=== PATIENT | female | born 1990 | race Caucasian/White ===

== ENCOUNTER 2016-11-18 18:43 | Emergency (ER) | payer SELFPAY ==
--- NOTE | 2016-11-18 20:41 | ED.PDOC ---
History of Present Illness - General Chief Complaint: General Stated Complaint: she thinks she has the flu Time Seen by Provider: 11/18/16 19:11 Source: patient Exam Limitations: no limitations - History of Present Illness Initial Comments: Patient presents with three days of feeling sick. She says three days ago she was tired and had muscle aches. Yesterday she felt worse, and today she started having a fever. She just got treated for bronchitis with amoxicillin. No other complaints. Did not have a flu shot this year. Timing/Duration: 24 hours Severity: moderate Improving Factors: nothing Worsening Factors: nothing Associated Symptoms: malaise, weakness Allergies/Adverse Reactions: Allergies NO KNOWN ALLERGY Allergy (Verified 11/18/16 19:26) Home Medications: Ambulatory Orders Divalproex Sodium ER [Depakote ER] 1,000 mg PO DAILY 06/24/16 Oseltamivir Phosphate [Tamiflu] 75 mg PO BID #9 cap 11/18/16 Review of Systems - Review of Systems Constitutional: States: see HPI EENTM: States: no symptoms reported, tearing Cardiology: States: no symptoms reported Gastrointestinal/Abdominal: States: no symptoms reported Genitourinary: States: no symptoms reported Musculoskeletal: States: muscle pain Skin: States: no symptoms reported Neurological: States: no symptoms reported Endocrine: States: no symptoms reported Hematologic/Lymphatic: States: no symptoms reported Past Medical History (General) - Patient Medical History Hx Seizures: Yes - epileptic Hx Stroke: No Hx Dementia: No Hx Asthma: No Hx of COPD: No Hx Cardiac Disorders: No Hx Congestive Heart Failure: No Hx Pacemaker: No Hx Hypertension: No Hx Thyroid Disease: No Hx Diabetes: No Hx Gastroesophageal Reflux: No Hx Renal Disease: No Hx Cancer: No Hx of HIV: No Hx Hepatitis C: No Hx MRSA: No Surgical History: no surgical history - Vaccination History Hx Tetanus, Diphtheria Vaccination: No Hx Influenza Vaccination: No Hx Pneumococcal Vaccination: No Immunizations Up to Date: No - Social History Hx Tobacco Use: Yes Hx Chewing Tobacco Use: No Hx Alcohol Use: Yes Hx Substance Use: No Hx Substance Use Treatment: No Hx Depression: No Hx Physical Abuse: No Hx Emotional Abuse: No Hx Suspected Abuse: No - Female History Patient is a Female of Child Bearing Age (10 -59 yrs old): No Patient : No Family Medical History - Family History Mother Family History: Unknown Living Status: Still Living Physical Exam - Physical Exam General Appearance: Alert Ears, Nose, Throat: normal ENT inspection Neck: non-tender, full range of motion, supple Respiratory: lungs clear Cardiovascular/Chest: normal peripheral pulses, regular rate, rhythm, no edema Gastrointestinal/Abdominal: normal bowel sounds, non tender, soft Back Exam: normal inspection Extremity: normal range of motion, non-tender, normal inspection Skin Exam: normal color Lymphatic: no adenopathy Progress - Progress Progress: 11/18/16 20:42 Tamiflu 75 mg po x one given in the ER. RX sent home. Departure - Departure Clinical Impression: Influenza Disposition: Discharge to Home or Self Care Condition: Good Departure Forms: ED Discharge - Pt. Copy, Patient Portal Self Enrollment Diet: resume usual diet Activity: increase activity as tolerated Prescriptions: Oseltamivir Phosphate [Tamiflu] 75 mg PO BID #9 cap Home Medications: Ambulatory Orders Divalproex Sodium ER [Depakote ER] 1,000 mg PO DAILY 06/24/16 Oseltamivir Phosphate [Tamiflu] 75 mg PO BID #9 cap 11/18/16 Additional Instructions: Increase fluids. Take prescription as directed. Follow up with your regular doctor if symptoms not resolved in 7 days. Return to ER if symptoms progress.
[2016-11-18] MEDS ORDERED: OSELTAMIVIR 75 MG CAP PO ONE (20:52)
[2016-11-18 21:02] VITALS: BP 116/79; TEMP 100.5; O2SAT 97
== END 2016-11-18 21:02 | disposition home or self-care (01) ==
LOC: ER 18:43
DX: J11.1 Influenza due to unidentified influenza virus with other respiratory manifestations (principal); G40.909 Epilepsy, unspecified, not intractable, without status epilepticus; Z87.891 Personal history of nicotine dependence; Z79.899 Other long term (current) drug therapy

== ENCOUNTER 2017-07-16 11:49 | Emergency (ER) | payer BC ==
--- NOTE | 2017-07-16 12:04 | ED.PDOC ---
History of Present Illness - General Chief Complaint: Upper Extremity Injury Stated Complaint: fall Time Seen by Provider: 07/16/17 12:01 Source: patient - History of Present Illness Initial Comments: Ana Cespedes 26 y/o female stated that she slipped and fell on slippery floor at home landing on her right side with sharp pain on her left upper extremity after the incident Occurred: yesterday Severity: moderate Injuries/Pain Location: upper extremity - left Reason for Fall: slipped Loss of Consciousness: no loss of consciousness Improving Factors: rest Worsening Factors: movement Associated Symptoms (Fall): denies symptoms Allergies/Adverse Reactions: Allergies NO KNOWN ALLERGY Allergy (Verified 11/18/16 19:26) Home Medications: Ambulatory Orders Divalproex Sodium ER [Depakote ER] 500 mg PO DAILY 06/24/16 Naproxen [Naprosyn] 500 mg PO BID #14 tab 07/16/17 Topiramate [Topamax] 200 mg PO DAILY 07/16/17 Review of Systems - Review of Systems Constitutional: States: no symptoms reported EENTM: States: no symptoms reported Respiratory: States: no symptoms reported Cardiology: States: no symptoms reported Gastrointestinal/Abdominal: States: no symptoms reported Musculoskeletal: States: see HPI Past Medical History (General) - Patient Medical History Hx Seizures: Yes - epileptic Hx Stroke: No Hx Dementia: No Hx Asthma: No Hx of COPD: No Hx Cardiac Disorders: No Hx Congestive Heart Failure: No Hx Pacemaker: No Hx Hypertension: No Hx Thyroid Disease: No Hx Diabetes: No Hx Gastroesophageal Reflux: No Hx Renal Disease: No Hx Cancer: No Hx of HIV: No Hx Hepatitis C: No Hx MRSA: No Surgical History: no surgical history - Vaccination History Hx Tetanus, Diphtheria Vaccination: No Hx Influenza Vaccination: No Hx Pneumococcal Vaccination: No - Social History Hx Tobacco Use: Yes Hx Chewing Tobacco Use: No Hx Alcohol Use: Yes Hx Substance Use: No Hx Substance Use Treatment: No Hx Depression: No Hx Physical Abuse: No Hx Emotional Abuse: No Hx Suspected Abuse: No - Female History Hx Last Menstrual Period: 06/01/17 Patient : No Physical Exam - Physical Exam General Appearance: Alert, Comfortable, No apparent distress Head Injury: no evidence of injury Eye Exam: bilateral normal ENT Exam: hearing grossly normal, no evidence of ENT injury, no dental injury Peripheral Pulses: radial,right: 1+, radial,left: 1+ Cardiovascular/Respiratory: regular rate, rhythm, no M/R/G, normal peripheral pulses, normal breath sounds Gastrointestinal/Abdominal: non tender, soft, no organomegaly Back Exam: no vertebral tenderness Extremity Exam: no evidence of injury, no pedal edema, pain with movement - right shoulder ,arm and elbow, other - ecchymosis right arm Neurologic: alert, oriented x 3 Skin Exam: normal color, warm/dry - [place] Coma Score Best Eye Response (Sunitha): (4) open spontaneously Best Verbal Response (Sunitha): (5) oriented Best Motor Response (Sunitha): (6) obeys commands Sunitha Total: 15 Departure - Departure Clinical Impression: Fall Qualifiers: Encounter type: initial encounter Qualified Code(s): W19.XXXA - Unspecified fall, initial encounter Contusion of upper extremity Qualifiers: Encounter type: initial encounter Laterality: right Qualified Code(s): S40.021A - Contusion of right upper arm, initial encounter Time of Disposition: 12:49 Disposition: Discharge to Home or Self Care Condition: Good Instructions: Contusion Referrals: JUAN DAVID DAI IV, FNP [Primary Care Provider] - 1-2 Weeks Prescriptions: Naproxen [Naprosyn] 500 mg PO BID #14 tab Home Medications: Ambulatory Orders Divalproex Sodium ER [Depakote ER] 500 mg PO DAILY 06/24/16 Naproxen [Naprosyn] 500 mg PO BID #14 tab 07/16/17 Topiramate [Topamax] 200 mg PO DAILY 07/16/17 Additional Instructions: May use ice pack 20 minutes 3 x a day during waking hours only for 7 days to affected area follow up with primary md as needed in one week call for appointment
[2017-07-16 12:09] VITALS: BP 122/85; TEMP 98.7; O2SAT 100
--- NOTE | 2017-07-16 12:24 | RAD ---
Two-view right shoulder. Two-view right humerus. Two-view right elbow. Indication: pain Comparison: None FINDINGS: A.C. and glenohumeral joint alignment normal without dislocation. A mildly comminuted fracture of the lateral margin of the surgical neck of the humerus noted with minimal impaction suspected. No elbow fracture or malalignment identified. Electronically signed by: Aakash Baxter MD 07/16/2017 12:22 PM CDT
[2017-07-16] MEDS ORDERED: HYDROcodone 10MG/APAP 325MG 1 EA TAB PO ONE (13:05)
== END 2017-07-16 13:16 | disposition home or self-care (01) ==
LOC: ER 11:49
DX: S40.021A Contusion of right upper arm, initial encounter (principal); G40.909 Epilepsy, unspecified, not intractable, without status epilepticus; Z87.891 Personal history of nicotine dependence; W01.0XXA Fall on same level from slipping, tripping and stumbling without subsequent striking against object, initial encounter; Y92.009 Unspecified place in unspecified non-institutional (private) residence as the place of occurrence of the external cause

== ENCOUNTER → 2017-07-19 | Outpatient (CLI) | payer BC ==
--- NOTE | 2017-07-19 16:33 | RAD ---
EXAM DESCRIPTION: Humerus,Right CLINICAL HISTORY: UNSPECIFIED FRATURE OF UPPER END OF RIGHT HUMERUS COMPARISON: July 16, 2017 IMPRESSION: 2 views of the right humerus again demonstrate minimally displaced, mildly comminuted fracture of the lateral margin of the surgical neck of the humerus similar to previous exam. Fracture likely extends to the greater tuberosity. The remainder of the humerus is unremarkable. No dislocation. Soft tissues are unremarkable. Electronically signed by: Joby Guzmán MD 07/19/2017 4:31 PM CDT
== END | disposition home or self-care (01) ==
LOC: RAD 09:52
PROVIDERS: ATTEND Orthopaedic Surgery
DX: S42.201A Unspecified fracture of upper end of right humerus, initial encounter for closed fracture (principal)

== ENCOUNTER → 2017-07-26 | Outpatient (CLI) | payer BC ==
--- NOTE | 2017-07-26 12:55 | RAD ---
EXAM DESCRIPTION: Shoulder,Right 2 or More Views CLINICAL HISTORY: 26 yearsFemale, FX OF NECK OF HUMERUS COMPARISON: 07/16/2017 and 07/19/2017 IMPRESSION: Again demonstrated is a minimally displaced and impacted fracture in the surgical neck of the proximal right humerus. The fracture may extend into the greater trochanter, as before. Alignment is essentially unchanged compared to the prior exam. Only minimal callus formation is demonstrated at the fracture site. No dislocation. The remaining osseous structures show no evidence of fracture. Electronically signed by: Michael Branch MD 07/26/2017 12:54 PM CDT
== END | disposition home or self-care (01) ==
LOC: RAD 08:30
PROVIDERS: ATTEND Orthopaedic Surgery
DX: S42.211D Unspecified displaced fracture of surgical neck of right humerus, subsequent encounter for fracture with routine healing (principal)

== ENCOUNTER → 2017-08-02 | Outpatient (CLI) | payer BC ==
--- NOTE | 2017-08-02 10:02 | RAD ---
EXAM DESCRIPTION: Shoulder,Right 2 or More Views CLINICAL HISTORY: 26 years,Female,FX OF NECK OF HUMERUS COMPARISON: July 26, 2017 FINDINGS: The right shoulder demonstrates fracture the neck the humerus which is minimally to nondisplaced and stable fracture line still visible mostly and no change. The acromial clavicular joint is unremarkable. The included lung marcos are unremarkable. There is no significant lateral down sloping of the acromion with no significant narrowing of the supraspinatus outlet. IMPRESSION: Fractures of neck the right humerus minimally to nondisplaced and stable. Electronically signed by: Jeff Mast MD 08/02/2017 10:01 AM CDT
== END | disposition home or self-care (01) ==
LOC: RAD 08:20
PROVIDERS: ATTEND Orthopaedic Surgery
DX: S42.211D Unspecified displaced fracture of surgical neck of right humerus, subsequent encounter for fracture with routine healing (principal)

== ENCOUNTER → 2017-08-16 | Outpatient (CLI) | payer BC ==
--- NOTE | 2017-08-16 11:52 | RAD ---
EXAM DESCRIPTION: Shoulder, right 2 or More Views CLINICAL HISTORY: 26 years, Female, FX NECK OF HUMERUS COMPARISON: August 02 FINDINGS: Fracture right neck humerus extending to tuberosity region has stable alignment without significant displacement. Small amount of interval periosteal reaction. IMPRESSION: Stable alignment right humeral neck fracture with slight interval radiographic healing Electronically signed by: Ajay Lamar MD 08/16/2017 11:51 AM CDT
== END | disposition home or self-care (01) ==
LOC: RAD 08:18
PROVIDERS: ATTEND Orthopaedic Surgery
DX: S42.211D Unspecified displaced fracture of surgical neck of right humerus, subsequent encounter for fracture with routine healing (principal)

== ENCOUNTER → 2017-08-23 | Outpatient (CLI) | payer BC ==
--- NOTE | 2017-08-23 16:09 | RAD ---
EXAM DESCRIPTION: Shoulder,Right 2 or More Views CLINICAL HISTORY: Right neck humerus fracture. COMPARISON: August 16, 2017. TECHNIQUE: 3 views of the right shoulder. FINDINGS: Redemonstration of right humeral neck fracture involving the greater and lesser tubercles. Radiolucent fracture line without significant displacement appears similar compared to August 16, 2017. Mild callus formation observed of the fracture line. The acromioclavicular joint is maintained. IMPRESSION: 1. Stable alignment of the right humeral neck fracture with mild callus formation observed of the fracture line along the greater and lesser tubercles. Electronically signed by: Jeff Ferris MD 08/23/2017 4:07 PM CDT
== END | disposition home or self-care (01) ==
LOC: RAD 08:31
PROVIDERS: ATTEND Orthopaedic Surgery
DX: S42.211D Unspecified displaced fracture of surgical neck of right humerus, subsequent encounter for fracture with routine healing (principal)

== ENCOUNTER → 2017-09-14 | Outpatient (CLI) | payer BC ==
--- NOTE | 2017-09-14 08:31 | RAD ---
EXAM DESCRIPTION: Shoulder,Right 2 or More Views CLINICAL HISTORY: 26 years, Female, FX NECK OF HUMERUS COMPARISON: August 23 FINDINGS: Stable alignment impacted fracture humeral neck with small amount interval callus formation. Minimal periosteal reaction IMPRESSION: Stable alignment fracture humeral neck with minimal interval healing Electronically signed by: Ajay Lamar MD 09/14/2017 8:29 AM [facility]
== END | disposition home or self-care (01) ==
LOC: RAD 07:31
PROVIDERS: ATTEND Orthopaedic Surgery
DX: S42.211D Unspecified displaced fracture of surgical neck of right humerus, subsequent encounter for fracture with routine healing (principal); X58.XXXA Exposure to other specified factors, initial encounter

== ENCOUNTER 2018-01-18 00:25 | Emergency (ER) | payer SELFPAY ==
[2018-01-18 00:34] VITALS: TEMP 97.2
--- NOTE | 2018-01-18 00:47 | ED.PDOC ---
History of Present Illness - General Chief Complaint: Neuro Symptoms/Deficits Stated Complaint: seizure Time Seen by Provider: 01/18/18 00:42 Source: patient, RN notes reviewed Additional Information: 27 YEAR OLD WITH KNOWN HISTORY OF SEIZURES SINCE AGE 3 TAKES TOPAMAX 200 MG PO FOLLOWED BY NEUROLOGIST IN [place] PRESENTS WITH HAVING HAD A GENERALISED SEIZURE TONIGHT SHE WAS POST ICTAL WHEN SHE ARRIVED SHE IS AFEBRILE HAS NO INJURIES NO MENINGEAL SIGNS SHE HAS NO SYMPTOMS OF ANY INFECTIOUS ETIOLOGY OR DEHYDRATION TO LOWER HER SEIZURE THRESHOLD HER LAST SIZURE WAS SEVERAL MONTHS AGO NO HISTORY OF TRAUMA SHE HAS A NEW JOB WHERE SHE PUTS IN LOTS OF HOURS WITH VERY LITTLE REST SHE IS NOT - History of Present Illness Severity: moderate Improving Factors: nothing Worsening Factors: nothing Associated Symptoms: seizures Allergies/Adverse Reactions: Allergies NO KNOWN ALLERGY Allergy (Verified 11/18/16 19:26) Home Medications: Ambulatory Orders Topiramate [Topamax] 200 mg PO DAILY 07/16/17 metroNIDAZOLE [Flagyl] 500 mg PO Q8H #1 tab 01/18/18 Review of Systems - Review of Systems Constitutional: States: no symptoms reported EENTM: States: no symptoms reported Respiratory: States: no symptoms reported Cardiology: States: no symptoms reported Gastrointestinal/Abdominal: States: no symptoms reported Genitourinary: States: no symptoms reported Musculoskeletal: States: no symptoms reported Skin: States: no symptoms reported Neurological: States: no symptoms reported Endocrine: States: no symptoms reported Hematologic/Lymphatic: States: no symptoms reported Past Medical History (General) - Patient Medical History Hx Seizures: Yes - epileptic Hx Stroke: No Hx Dementia: No Hx Asthma: No Hx of COPD: No Hx Cardiac Disorders: No Hx Congestive Heart Failure: No Hx Pacemaker: No Hx Hypertension: No Hx Thyroid Disease: No Hx Diabetes: No Hx Gastroesophageal Reflux: No Hx Renal Disease: No Hx Cancer: No Hx of HIV: No Hx Hepatitis C: No Hx MRSA: No Surgical History: no surgical history - Vaccination History Hx Tetanus, Diphtheria Vaccination: No Hx Influenza Vaccination: No Hx Pneumococcal Vaccination: No - Social History Hx Tobacco Use: Yes Hx Chewing Tobacco Use: No Hx Alcohol Use: Yes - states occasionally Hx Substance Use: No Hx Substance Use Treatment: No Hx Depression: No Hx Physical Abuse: No Hx Emotional Abuse: No Hx Suspected Abuse: No - Female History Hx Last Menstrual Period: 06/01/17 Patient : No - Triage Comment 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 Family Medical History - Family History Mother Family History: Unknown Living Status: Still Living Physical Exam - Physical Exam General Appearance: Alert, Comfortable Eye Exam: bilateral normal ENT Exam: normal ENT inspection, hearing grossly normal, TMs normal Neck: non-tender, full range of motion Respiratory: chest non-tender, lungs clear, normal breath sounds, no respiratory distress Cardiovascular/Chest: normal peripheral pulses, regular rate, rhythm, no edema, no gallop, no JVD Peripheral Pulses: radial,right: 2+, radial,left: 2+, femoral,right: 2+, femoral ,left: 2+, popliteal,right: 2+, popliteal,left: 2+ Gastrointestinal/Abdominal: normal bowel sounds, non tender, soft, no organomegaly warp placer Exam: normal hearing, normal speech, PERRL Coordination/Gait: normal finger to nose, normal gait Motor/Sensory: no motor deficit, no sensory deficit, no pronator drift, negative Babinski's sign Progress - Results/Orders Results/Orders: Laboratory Tests 01/18/18 01/18/18 00:10 00:10 WBC 10.3 RBC 4.17 L Hgb 13.0 Hct 38.9 MCV 93.4 MCH 31.1 H MCHC 33.3 RDW 14.4 Plt Count 204 MPV 11.3 H Absolute Neuts (auto) 5.80 Absolute Lymphs (auto) 3.70 H Absolute Monos (auto) 0.60 Absolute Eos (auto) 0.20 Absolute Basos (auto) 0.00 Neutrophils % 55.9 Lymphocytes % 35.8 Monocytes % 6.3 Eosinophils % 1.6 Basophils % 0.4 Sodium 138 Potassium 3.2 L Chloride 112 H Carbon Dioxide 15 L Anion Gap 14.2 BUN 16 Creatinine 0.67 BUN/Creatinine Ratio 23.9 H Random Glucose 135 H Serum Osmolality 278.9 Calcium 9.0 Departure - Departure Clinical Impression: Seizure disorder Time of Disposition: 01:12 Disposition: Discharge to Home or Self Care Condition: Good Departure Forms: ED Discharge - Pt. Copy, Patient Portal Self Enrollment Diet: resume usual diet Activity: increase activity as tolerated Referrals: Fadia Bhatt, BRICK GRADER [Primary Care Provider] - 1-2 Weeks Home Medications: Ambulatory Orders Topiramate [Topamax] 200 mg PO DAILY 07/16/17 metroNIDAZOLE [Flagyl] 500 mg PO Q8H #1 tab 01/18/18
[2018-01-18] MEDS ORDERED: LORazepam 0.5 MG TAB ONE (01:09)
[2018-01-18] MEDS ORDERED: LORazepam 0.5 MG TAB PO ONE (01:09)
[2018-01-18 01:28] VITALS: BP 106/61
[2018-01-18 01:29] VITALS: O2SAT 100
== END 2018-01-18 01:28 | disposition home or self-care (01) ==
LOC: ER 00:25
DX: G40.909 Epilepsy, unspecified, not intractable, without status epilepticus (principal); Z79.899 Other long term (current) drug therapy; Z87.891 Personal history of nicotine dependence

== ENCOUNTER 2018-09-04 19:17 | Emergency (ER) | payer SELFPAY ==
[2018-09-04 19:52] VITALS: TEMP 98.3
[2018-09-04] MEDS ORDERED: LACTATED RINGERS 1,000 ML IVS ONE ×2 (20:01→20:44)
--- NOTE | 2018-09-04 20:01 | ED.PDOC ---
History of Present Illness - General Chief Complaint: Abdominal Pain Stated Complaint: N/V x's 2-3 weeks, abdomen and back discomfort Time Seen by Provider: 09/04/18 19:31 Information Source: patient Exam Limitations: no limitations - History of Present Illness Initial Comments: Ana Rodriguez 27 y/o female stated that she had sore epigastrium for the last 3- 4 weeks and feeling of nausea.denies diarrhea,vomiting able to eat,no constipation,no dysuria.Has history of seizure disorder. Abdominal Pain Onset Location: epigastric Pain Radiation: back Quality: other - soreness, waxing/waning Timing/Duration: intermittent, other - 3-4 weeks Improving Factors: cold therapy Worsening Factors: nothing Associated Symptoms: nausea/vomiting, other - see hpi Review of Systems - Review of Systems Constitutional: States: no symptoms reported EENTM: States: no symptoms reported Respiratory: States: no symptoms reported Cardiology: States: no symptoms reported Gastrointestinal/Abdominal: States: nausea Genitourinary: States: no symptoms reported Musculoskeletal: States: no symptoms reported Skin: States: no symptoms reported Past Medical History (General) - Patient Medical History Hx Seizures: Yes - epileptic Hx Stroke: No Hx Dementia: No Hx Asthma: No Hx of COPD: No Hx Cardiac Disorders: No Hx Congestive Heart Failure: No Hx Pacemaker: No Hx Hypertension: No Hx Thyroid Disease: No Hx Diabetes: No Hx Gastroesophageal Reflux: No Hx Renal Disease: No Hx Cancer: No Hx of HIV: No Hx Hepatitis C: No Hx MRSA: No Surgical History: no surgical history - Vaccination History Hx Tetanus, Diphtheria Vaccination: Yes Hx Influenza Vaccination: Yes Hx Pneumococcal Vaccination: No - Social History Hx Tobacco Use: Yes Hx Chewing Tobacco Use: No Hx Alcohol Use: Yes - states occasionally Hx Substance Use: No Hx Substance Use Treatment: No Hx Depression: No Hx Physical Abuse: No Hx Emotional Abuse: No Hx Suspected Abuse: No - Female History Patient is a Female of Child Bearing Age (10 -59 yrs old): Yes Hx Last Menstrual Period: 08/22/18 Patient : No Family Medical History - Family History Mother Family History: Unknown Living Status: Still Living Physical Exam - Physical Exam General Appearance: Alert, Comfortable, No apparent distress Eyes, Ears, Nose, Throat Exam: PERRL/EOMI, normal ENT inspection, TMs normal, pharynx normal Neck: non-tender, full range of motion, supple Respiratory: chest non-tender, lungs clear, normal breath sounds Cardiovascular/Chest: normal peripheral pulses, regular rate, rhythm, no murmur Peripheral Pulses: No deficit Gastrointestinal/Abdominal: non tender, soft, tenderness - epigastrium no peritoneal signs Back Exam: no CVA tenderness, no vertebral tenderness Extremity: non-tender, no pedal edema, no calf tenderness Neurologic: alert, oriented x 3 Skin Exam: normal color, warm/dry Progress - Progress Progress: 09/04/18 20:51 Vital Signs - 8 hr 09/04/18 19:30 Temperature 98.3 F Pulse Rate [ 85 monitor] Respiratory 16 Rate Blood Pressure 107/73 [Left Arm] O2 Sat by Pulse 100 Oximetry - Results/Orders Results/Orders: 09/04/18 20:01 URINE CULTURE W/COLONY COUNT Stat 09/04/18 20:45 Hold Metformin x 48Hrs [id number] Laboratory Results - last 24 hr 09/04/18 09/04/18 09/04/18 19:56 20:01 20:01 WBC RBC Hgb Hct MCV MCH MCHC RDW Plt Count MPV Absolute Neuts (auto) Absolute Lymphs (auto) Absolute Monos (auto) Absolute Eos (auto) Absolute Basos (auto) Neutrophils % Lymphocytes % Monocytes % Eosinophils % Basophils % Sodium Potassium Chloride Carbon Dioxide Anion Gap BUN Creatinine BUN/Creatinine Ratio Random Glucose Serum Osmolality Calcium Total Bilirubin Direct Bilirubin Indirect Bilirubin AST ALT Alkaline Phosphatase Serum Total Protein Albumin Amylase Lipase Urine Color Yellow Urine Appearance Clear Urine pH 7.5 Ur Specific [place] 1.015 Urine Protein Negative Urine Glucose (UA) Negative Urine Ketones Negative Urine Blood Negative Urine Nitrite Negative Urine Bilirubin Negative Urine Urobilinogen 0.2 Ur Leukocyte Esterase Small H Urine RBC 0 Urine WBC 3-5 H Ur Epithelial Cells 3-5 Urine Bacteria Rare Urine HCG, Qual Negative Urine Opiates Screen Negative Urine Barbiturates Negative Valproic Acid Ur Phencyclidine Scrn Negative U Amphetamin/Meth Scrn Negative U Benzodiazepines Scrn Negative U Cocaine Metab Screen Negative U Cannabinoids Screen Negative 09/04/18 09/04/18 09/04/18 20:06 20:06 20:43 WBC 9.1 RBC 4.21 Hgb 13.4 Hct 40.4 MCV 95.9 MCH 31.9 H MCHC 33.3 RDW 13.9 Plt Count 172 MPV 10.3 Absolute Neuts (auto) 5.50 Absolute Lymphs (auto) 2.70 Absolute Monos (auto) 0.70 Absolute Eos (auto) 0.20 Absolute Basos (auto) 0.00 Neutrophils % 60.9 Lymphocytes % 29.7 Monocytes % 7.4 Eosinophils % 1.7 Basophils % 0.3 Sodium 138 Potassium 4.2 Chloride 106 Carbon Dioxide 28 Anion Gap 8.2 L BUN 19 H Creatinine 0.56 L BUN/Creatinine Ratio 33.9 H Random Glucose 100 Serum Osmolality 278.0 Calcium 9.0 Total Bilirubin 0.2 Direct Bilirubin < 0.1 Indirect Bilirubin 0.1 L AST 15 ALT 11 Alkaline Phosphatase 41 L Serum Total Protein 7.0 Albumin 3.9 Amylase 72 Lipase 33 Urine Color Urine Appearance Urine pH Ur Specific [place] Urine Protein Urine Glucose (UA) Urine Ketones Urine Blood Urine Nitrite Urine Bilirubin Urine Urobilinogen Ur Leukocyte Esterase Urine RBC Urine WBC Ur Epithelial Cells Urine Bacteria Urine HCG, Qual Urine Opiates Screen Urine Barbiturates Valproic Acid 42.1 L Ur Phencyclidine Scrn U Amphetamin/Meth Scrn U Benzodiazepines Scrn U Cocaine Metab Screen U Cannabinoids Screen - EKG/XRAY/CT CT Ordered: Yes - abdomen/p-no acute abnormalities Departure - Departure Clinical Impression: Nausea Abdominal pain Qualifiers: Abdominal location: upper abdomen, unspecified Qualified Code(s): R10.10 - Upper abdominal pain, unspecified Time of Disposition: 22:09 Disposition: Discharge to Home or Self Care Condition: Fair Departure Forms: ED Discharge - Pt. Copy, Patient Portal Self Enrollment Instructions: DI for Abdominal Pain-Adult Diet: other - AVOID GREASY,SPICY FOODS Referrals: Fadia Bhatt NP [Primary Care Provider] - 1-2 Weeks Prescriptions: Pantoprazole Tablet [Protonix] 40 mg PO ACBK #30 tab Promethazine Tab [Phenergan Tablet] 0 mg PO .Q4H PRN #20 tab PRN Reason: Nausea Sucralfate Tab [Carafate Tab] 1 gm PO ACHS #60 tablet Home Medications: Ambulatory Orders Divalproex Sodium [Depakote ER] 1,000 mg PO DAILY 09/04/18 Pantoprazole Tablet [Protonix] 40 mg PO ACBK #30 tab 09/04/18 Promethazine Tab [Phenergan Tablet] 0 mg PO .Q4H PRN #20 tab 09/04/18 Sucralfate Tab [Carafate Tab] 1 gm PO ACHS #60 tablet 09/04/18 Additional Instructions: Follow up with primary Md 05 September 2018 for Gastroenterology consult
[2018-09-04] MEDS ORDERED: PANTOPRAZOLE INJECTION 80 MG in SODIUM CHLORIDE 0.9% 100ML 80 ML IVPB ONE (20:44)
[2018-09-04] MEDS ORDERED: SUCRALFATE 1 GM/10 ML 1 GM UD PO ONE (20:44)
[2018-09-04] MEDS ORDERED: ONDANSETRON INJ 4 MG/2 ML VIAL IV ONE (20:45)
[2018-09-04] MEDS ORDERED: SODIUM CHLORIDE 0.9% 100ML 100 ML IVPB ONE (21:00)
[2018-09-04] MEDS ORDERED: PANTOPRAZOLE SODIUM IV 40 MG VIAL ONE (21:00)
--- NOTE | 2018-09-04 21:26 | CT ---
EXAM: Abdomen/Pelvis w/Contrast CLINICAL INDICATION: Abdominal pain. COMPARISON: There is no previous study for comparison. TECHNIQUE: The CT scan was done using contiguous axial 5 mm postcontrast sections through the abdomen and pelvis including IV contrast. This exam was performed according to our departmental dose-optimization program, which includes automated exposure control, adjustment of the mA and/or kV according to patient size and/or use of iterative reconstruction technique. FINDINGS: The visualized portions of the lung bases are clear. The liver, gallbladder, kidneys, adrenal glands, spleen, and pancreas have an unremarkable CT appearance. The appendix is normal. No dilated loops of small bowel are identified. There is no free air, free fluid, or abscess. IMPRESSION: No evidence of an acute intra-abdominal process. Electronically signed by: Bola Jerome MD 09/04/2018 9:25 PM WEB DEVELOPMENT MANAGER
[2018-09-04] MEDS ORDERED: KETOROLAC TROMETHAMINE INJ 30 MG/ML VIAL IV ONE (21:59)
[2018-09-04 22:44] VITALS: BP 128/88; O2SAT 99
== END 2018-09-04 22:44 | disposition home or self-care (01) ==
LOC: ER 19:17
DX: R10.10 Upper abdominal pain, unspecified (principal); R11.0 Nausea; G40.909 Epilepsy, unspecified, not intractable, without status epilepticus; Z87.891 Personal history of nicotine dependence
CPT/HCPCS: 36415; 74177; 80048; 80076; 80164; 80307; 81001; 81025; 82150; 83690; 85025; 87086; J1885; J2405; J7050; J7120

== ENCOUNTER → 2019-07-03 | Outpatient (CLI) | payer BC | LOC: LAB.O 17:58 | PROVIDERS: ATTEND Nurse Practitioner Family | DX: R11.0 Nausea (principal) ==